=== PATIENT | male | born 1975 | race Caucasian/White ===

== ENCOUNTER 2023-04-23 19:54 | Inpatient (IN) | payer MEDICAID ==
[~2023-04-23] VITALS: Ht 167.6 cm; Wt 74.8 kg
[2023-04-23 20:30] VITALS: BP 135/85; PULSE 85; RESP 18; TEMP 99.2; O2SAT 96
[2023-04-23] MEDS ORDERED: LIDOCAINE MPF 1% 10 MG/ML VIAL INJ ONE (21:10)
[2023-04-23] MEDS ORDERED: KETOROLAC 30 MG/ML VIAL IVP ONE (23:30)
[2023-04-23] MEDS ORDERED: NACL 0.9% 1,000 ML IV SCH (23:45)
[2023-04-23] MEDS ORDERED: ACETAMINOPHEN 325 MG TAB PO PRN (23:45)
[2023-04-23] MEDS ORDERED: ONDANSETRON 4 MG/2 ML VIAL IVP PRN (23:45)
[2023-04-23] MEDS ORDERED: MORPHINE SULFATE 2 MG/ML SYR IVP PRN (23:45)
[2023-04-23] MEDS ORDERED: ALBUTEROL SULFATE/IPRATROPIU 3 ML SOL IH PRN (23:45)
[2023-04-24 00:54] VITALS: BP 137/92; PULSE 81; RESP 19; TEMP 98.2; O2SAT 95
[2023-04-24 02:09] VITALS: PULSE 82; RESP 18; O2SAT 98
[2023-04-24] MEDS: NACL 0.9% 1,000 ML IV SCH (05:05)
[2023-04-24] MEDS: HYDROcodone/APAP 5/325 MG 1 TAB TAB PO PRN ×3 (05:06→21:53)
[2023-04-24 06:28] LABS: BASOPHILS % (AUTO) 0.2 % (0.0-2.0); EOSINOPHILS % (AUTO) 0.1 % (0.0-4.0); LYMPHOCYTES # (AUTO) 1.4 K/uL (2.0-11.5); LYMPHOCYTES % (AUTO) 6.3 % (20.5-51.1); MEAN CORPUSCULAR HEMOGLOBIN 33 pg (27-31); MEAN CORPUSCULAR HGB CONC 34 g/dL (33-37); MEAN CORPUSCULAR VOLUME 95.6 fL (80-94); MONOCYTES # (AUTO) 1.4 K/uL (0.8-1.0); MONOCYTES % (AUTO) 6.4 % (1.7-9.3); NEUTROPHILS # (AUTO) 18.6 K/uL (1.8-7.7); PLATELET COUNT (AUTO) 331 K/uL (140-450); RED BLOOD CELL COUNT(AUTO) 4.92 MIL/uL (4.20-6.10); RED CELL DISTRIBUTION WIDTH 12.8 % (11.6-13.7); WHITE BLOOD COUNT (AUTO) 21.4 K/uL (4.8-10.8)
[2023-04-24] MEDS ORDERED: LORazepam 1 MG TAB PO PRN (06:40)
[2023-04-24 06:50] LABS: ANION GAP 15.5 (8-16); CALCIUM 8.9 mg/dL (8.5-10.1); CARBON DIOXIDE 24.4 mmol/L (21-32); CREATININE 0.8 mg/dL (0.6-1.3); POTASSIUM 3.9 mmol/L (3.5-5.1)
[2023-04-24 08:00] VITALS: BP 128/92; PULSE 73; RESP 16; TEMP 97.7; O2SAT 93
[2023-04-24] MEDS ORDERED: MAG SULF 2000 MG/WATER PREMIX 50 ML IV PRN (09:35)
[2023-04-24] MEDS ORDERED: POTASSIUM CHLORIDE 10 MEQ TABER PO PRN (09:35)
[2023-04-24] MEDS ORDERED: MORPHINE SULFATE 2 MG/ML SYR IVP PRN (09:35)
[2023-04-24] MEDS ORDERED: ZOLPIDEM 10 MG TAB PO PRN (09:35)
[2023-04-24] MEDS ORDERED: ONDANSETRON 4 MG/2 ML VIAL IVP PRN (09:35)
[2023-04-24] MEDS ORDERED: ACETAMINOPHEN 325 MG TAB PO PRN (09:35)
[2023-04-24] MEDS: AZITHROMYCIN 500 MG in DEXTROSE 5% 250 ML IV SCH (12:03)
[2023-04-24 16:00] VITALS: BP 108/83; PULSE 61; RESP 18; TEMP 98.2; O2SAT 94
[2023-04-24 19:29] VITALS: O2SAT 97
[2023-04-24 20:00] VITALS: PULSE 61; RESP 18; O2SAT 94
[2023-04-25] MEDS: NACL 0.9% 1,000 ML IV SCH ×3 (00:30→12:18)
[2023-04-25 00:51] VITALS: BP 115/82; PULSE 61; RESP 18; TEMP 98; O2SAT 94
[2023-04-25] MEDS: HYDROcodone/APAP 5/325 MG 1 TAB TAB PO PRN ×4 (03:56→20:24)
[2023-04-25 05:53] LABS: BASOPHILS # (AUTO) 0.1 K/uL (0.00-0.22); BASOPHILS % (AUTO) 0.6 % (0.0-2.0); EOSINOPHILS # (AUTO) 0.1 K/uL (0-0.4); EOSINOPHILS % (AUTO) 1.4 % (0.0-4.0); HEMATOCRIT 42.5 % (36-52); HEMOGLOBIN 14.6 g/dL (12.0-18.0); LYMPHOCYTES # (AUTO) 2.4 K/uL (2.0-11.5); MEAN CORPUSCULAR HEMOGLOBIN 33 pg (27-31); MEAN CORPUSCULAR HGB CONC 34 g/dL (33-37); MEAN CORPUSCULAR VOLUME 95.5 fL (80-94); MONOCYTES # (AUTO) 0.8 K/uL (0.8-1.0); MONOCYTES % (AUTO) 8.8 % (1.7-9.3); NEUTROPHILS # (AUTO) 5.6 K/uL (1.8-7.7); NEUTROPHILS % (AUTO) 62.2 % (42.2-75.2); PLATELET COUNT (AUTO) 300 K/uL (140-450); RED BLOOD CELL COUNT(AUTO) 4.45 MIL/uL (4.20-6.10); RED CELL DISTRIBUTION WIDTH 13.1 % (11.6-13.7)
[2023-04-25 06:37] LABS: ALBUMIN 2.8 g/dL (3.4-5.0); ANION GAP 10.9 (8-16); CALCIUM 8.8 mg/dL (8.5-10.1); CARBON DIOXIDE 28.2 mmol/L (21-32); POTASSIUM 4.1 mmol/L (3.5-5.1); TOTAL BILIRUBIN 0.5 mg/dL (0.0-1.0); TOTAL PROTEIN, SERUM 6.6 g/dL (6.4-8.2)
[2023-04-25 08:00] VITALS: BP 128/74; PULSE 76; RESP 18; TEMP 97.9; O2SAT 96
[2023-04-25] MEDS: AZITHROMYCIN 500 MG in DEXTROSE 5% 250 ML IV SCH (09:16)
[2023-04-25 12:14] VITALS: O2SAT 96
[2023-04-25 16:00] VITALS: BP 123/79; PULSE 65; RESP 18; TEMP 98.1; O2SAT 95
[2023-04-25 20:00] VITALS: BP 113/73; PULSE 67; RESP 19; TEMP 98.6; O2SAT 98
[2023-04-25 22:03] VITALS: RESP 19
[2023-04-26 04:00] VITALS: BP 119/80; PULSE 69; RESP 19; TEMP 98.7; O2SAT 99
[2023-04-26] MEDS: HYDROcodone/APAP 5/325 MG 1 TAB TAB PO PRN ×2 (06:05→12:13)
[2023-04-26 06:11] LABS: BASOPHILS # (AUTO) 0.1 K/uL (0.00-0.22); BASOPHILS % (AUTO) 0.5 % (0.0-2.0); EOSINOPHILS # (AUTO) 0.1 K/uL (0-0.4); EOSINOPHILS % (AUTO) 0.8 % (0.0-4.0); HEMATOCRIT 42.7 % (36-52); HEMOGLOBIN 14.8 g/dL (12.0-18.0); LYMPHOCYTES # (AUTO) 2.1 K/uL (2.0-11.5); LYMPHOCYTES % (AUTO) 15.9 % (20.5-51.1); MEAN CORPUSCULAR HEMOGLOBIN 33 pg (27-31); MEAN CORPUSCULAR HGB CONC 35 g/dL (33-37); MEAN CORPUSCULAR VOLUME 95.3 fL (80-94); MONOCYTES % (AUTO) 7.4 % (1.7-9.3); NEUTROPHILS % (AUTO) 75.4 % (42.2-75.2); PLATELET COUNT (AUTO) 321 K/uL (140-450); RED BLOOD CELL COUNT(AUTO) 4.48 MIL/uL (4.20-6.10); RED CELL DISTRIBUTION WIDTH 12.9 % (11.6-13.7); WHITE BLOOD COUNT (AUTO) 13.3 K/uL (4.8-10.8)
[2023-04-26 06:44] LABS: ALBUMIN 3.1 g/dL (3.4-5.0); CALCIUM 9.2 mg/dL (8.5-10.1); CREATININE 0.9 mg/dL (0.6-1.3); TOTAL BILIRUBIN 0.4 mg/dL (0.0-1.0)
[2023-04-26 08:00] VITALS: BP 108/75; PULSE 70; RESP 18; TEMP 97.7; O2SAT 97
[2023-04-26 08:01] VITALS: O2SAT 97
[2023-04-26] MEDS ORDERED: ENOXAPARIN 40 MG/0.4 ML SYR SUBQ SCH (09:00)
[2023-04-26] MEDS: NACL 0.9% 1,000 ML IV SCH (09:19)
[2023-04-26] MEDS: AZITHROMYCIN 500 MG in DEXTROSE 5% 250 ML IV SCH (10:11)
[2023-04-26 20:00] VITALS: BP 112/73; PULSE 70; RESP 19; TEMP 98.5; O2SAT 95
[2023-04-26 20:08] VITALS: O2SAT 96
[2023-04-27] MEDS: HYDROcodone/APAP 5/325 MG 1 TAB TAB PO PRN (00:11)
[2023-04-27 00:42] VITALS: PULSE 93; RESP 17; O2SAT 97
[2023-04-27 04:00] VITALS: BP 123/84; PULSE 75; RESP 18; TEMP 97.9; O2SAT 96
[2023-04-27] MEDS ORDERED: LEVO750T75 PO (06:38)
[2023-04-27 07:12] LABS: BASOPHILS % (AUTO) 0.5 % (0.0-2.0); EOSINOPHILS # (AUTO) 0.1 K/uL (0-0.4); EOSINOPHILS % (AUTO) 1.1 % (0.0-4.0); HEMATOCRIT 43.9 % (36-52); HEMOGLOBIN 15.2 g/dL (12.0-18.0); LYMPHOCYTES # (AUTO) 1.9 K/uL (2.0-11.5); LYMPHOCYTES % (AUTO) 21.2 % (20.5-51.1); MEAN CORPUSCULAR HEMOGLOBIN 33 pg (27-31); MEAN CORPUSCULAR HGB CONC 35 g/dL (33-37); MEAN CORPUSCULAR VOLUME 95.5 fL (80-94); MONOCYTES # (AUTO) 0.7 K/uL (0.8-1.0); MONOCYTES % (AUTO) 8.5 % (1.7-9.3); NEUTROPHILS # (AUTO) 6.1 K/uL (1.8-7.7); NEUTROPHILS % (AUTO) 68.7 % (42.2-75.2); PLATELET COUNT (AUTO) 344 K/uL (140-450); RED BLOOD CELL COUNT(AUTO) 4.59 MIL/uL (4.20-6.10); WHITE BLOOD COUNT (AUTO) 8.8 K/uL (4.8-10.8)
[2023-04-27 07:42] LABS: ALBUMIN 3.3 g/dL (3.4-5.0); ANION GAP 11.1 (8-16); CALCIUM 9.3 mg/dL (8.5-10.1); CARBON DIOXIDE 28.1 mmol/L (21-32); CREATININE 0.9 mg/dL (0.6-1.3); POTASSIUM 4.2 mmol/L (3.5-5.1); TOTAL BILIRUBIN 0.4 mg/dL (0.0-1.0); TOTAL PROTEIN, SERUM 7.4 g/dL (6.4-8.2)
[2023-04-27 08:00] VITALS: PULSE 85; RESP 18; O2SAT 97
[2023-04-27] MEDS: AZITHROMYCIN 500 MG in DEXTROSE 5% 250 ML IV SCH (10:46)
[2023-04-27] MEDS: NACL 0.9% 1,000 ML IV SCH (12:47)
[2023-04-27 17:12] VITALS: PULSE 65; RESP 20; O2SAT 96
[2023-04-27 18:33] VITALS: BP 123/84; PULSE 65; RESP 20; TEMP 97.9
== END 2023-04-27 19:10 | disposition home or self-care (01) | DRG 143 ==
LOC: MED 19:54 → MMU 23:44 → MTU 04-24 00:23
PROVIDERS: ADMIT Internal Medicine; ATTEND Internal Medicine
PROC: 0W9B30Z Drainage of Left Pleural Cavity with Drainage Device, Percutaneous Approach (ICD-10-PCS; principal; 2023-04-23)
DX: J93.83 Other pneumothorax (principal); J18.9 Pneumonia, unspecified organism; R65.10 Systemic inflammatory response syndrome (SIRS) of non-infectious origin without acute organ dysfunction; E44.0 Moderate protein-calorie malnutrition; R09.02 Hypoxemia; Z68.26 Body mass index [BMI] 26.0-26.9, adult
CPT/HCPCS: 32551; 36415; 71045; 71046; 71250; 80048; 80053; 85025; 87040; 87081; 96374; 99285; J0456; J0696; J1644; J1885; J2001; J2270; J7060; Q0092

== ENCOUNTER 2023-08-09 18:27 | Emergency (ER) | payer MEDICAID, OTHER ==
[~2023-08-09] VITALS: Ht 172.7 cm; Wt 74.8 kg
[~2023-08-09 18:27] MED LIST: LEVO750T75 PO
[2023-08-09 18:32] VITALS: BP 98/58; PULSE 95; RESP 18; TEMP 98.5; O2SAT 98
[2023-08-09] MEDS ORDERED: OXYM20SP1 NS (19:56)
[2023-08-09] MEDS ORDERED: BENZ200C4 PO (19:56)
== END 2023-08-09 20:21 | disposition home or self-care (01) ==
LOC: MED 18:27
DX: B08.4 Enteroviral vesicular stomatitis with exanthem (principal); Z79.899 Other long term (current) drug therapy
CPT/HCPCS: 71046; 99283